=== PATIENT | male | born 1980 | race Caucasian/White ===

== ENCOUNTER 2017-10-31 14:40 | Emergency (ER) | payer OTHER ==
[2017-10-31 15:11] VITALS: RESP 18; O2SAT 98
--- NOTE | 2017-10-31 16:29 | RAD ---
Date of service: 10/31/2017 PROCEDURE: Radiographs of the Lumbar Spine. HISTORY: Back pain COMPARISON: No prior. FINDINGS: BONES: There is normal alignment of the lumbar vertebral bodies. There is normal lumbar lordosis. There is an age indeterminate compression deformity in the L1 vertebral body. No retropulsion. There is no spondylolysis or spondylolisthesis. Bone mineralization is normal. DISC SPACES: The disc heights are maintained. OTHER FINDINGS: There are no pathologic soft tissue calcifications. Both sacroiliac joints are normal. IMPRESSION: Age indeterminate compression deformity in the L1 vertebral body. No retropulsion. No spondylolysis or spondylolisthesis.
--- NOTE | 2017-10-31 16:59 | ED PDOC ---
Arrival/HPI - General Chief Complaint: Back Pain Time Seen by Provider: 10/31/17 14:52 Historian: Patient - History of Present Illness Narrative History of Present Illness (Text): 10/31/17 17:16 36yo male who present with complaint of left sided back pain x 3weeks. Notes pain is usually with flexion. States he took Motrin yesterday with temporary relieve. Denies trauma, focal weakness, urinary/fecal incontinence, abdominal pain, nausea, vomiting, urinary symptoms, saddle anesthesia, any other complaint. Past Medical History - Provider Review Nursing Documentation Reviewed: Yes - Infectious Disease Hx of Infectious Diseases: None - Cardiac Hx Cardiac Disorders: No - HEENT Hx HEENT Disorder: No - Integumentary Hx Dermatological Disorder: No - Musculoskeletal/Rheumatological Hx Musculoskeletal Disorders: No - Psychiatric Hx Psychophysiologic Disorder: No Hx Substance Use: No - Anesthesia Hx Anesthesia: No Family/Social History - Physician Review Nursing Documentation Reviewed: Yes Family/Social History: Unknown Family HX Smoking Status: Unknown If Ever Smoked Hx Alcohol Use: No Hx Substance Use: No Allergies/Home Meds Allergies/Adverse Reactions: Allergies No Known Allergies Allergy (Verified 10/31/17 15:07) Home Medications: Home Meds Medication Instructions Recorded Confirmed Ibuprofen [Motrin Ib] 0 mg PO PRN PRN 10/31/17 10/31/17 Review of Systems - Physician Review All systems were reviewed & negative as marked: Yes - Review of Systems Constitutional: Normal Eyes: Normal ENT: Normal Respiratory: Normal Cardiovascular: Normal Gastrointestinal: Normal Genitourinary Male: Normal Musculoskeletal: Back Pain Skin: Normal Neurological: Normal Endocrine: Normal Hemo/Lymphatic: Normal Psychiatric: Normal Physical Exam Vital Signs Reviewed: Yes Vital Signs Temp Pulse Resp BP Pulse Ox 10/31/17 15:04 99.2 F 85 18 107/75 98 10/31/17 14:40 99.2 F 85 18 107/75 98 Temperature: Afebrile Blood Pressure: Normal Pulse: Regular Respiratory Rate: Normal Appearance: Positive for: Well-Appearing, Non-Toxic, Comfortable Pain Distress: None Mental Status: Positive for: Alert and Oriented X 3 - Systems Exam Head: Present: Atraumatic, Normocephalic Pupils: Present: PERRL Extroacular Muscles: Present: EOMI Conjunctiva: Present: Normal Mouth: Present: Moist Mucous Membranes Neck: Present: Normal Range of Motion Respiratory/Chest: Present: Clear to Auscultation, Good Air Exchange. No: Respiratory Distress, Accessory Muscle Use Cardiovascular: Present: Regular Rate and Rhythm, Normal S1, S2. No: Murmurs Abdomen: No: Tenderness, Distention, Peritoneal Signs Back: Present: Paraspinal Tenderness (Left paraspinous tenderness). No: Midline Tenderness, Pain with Leg Raise Upper Extremity: Present: Normal Inspection. No: Cyanosis, Edema Lower Extremity: Present: Normal Inspection. No: Edema Neurological: Present: GCS=15, CN II-XII Intact, Speech Normal Skin: Present: Warm, Dry, Normal Color. No: Rashes Psychiatric: Present: Alert, Oriented x 3, Normal Insight, Normal Concentration Medical Decision Making ED Course and Treatment: 10/31/17 18:05 patient in ED for stated history. He was ambulatory and had no focal neurological deficit. His pain was controlled in ED with medication. UA was negative LS xray BONES: There is normal alignment of the lumbar vertebral bodies. There is normal lumbar lordosis. There is an age indeterminate compression deformity in the L1 vertebral body. No retropulsion. There is no spondylolysis or spondylolisthesis. Bone mineralization is normal. DISC SPACES: The disc heights are maintained. OTHER FINDINGS: There are no pathologic soft tissue calcifications. Both sacroiliac joints are normal. IMPRESSION: Age indeterminate compression deformity in the L1 vertebral body. No retropulsion. No spondylolysis or spondylolisthesis. The findings in the LS xray was DW the pt. He was not aware of the compression deformity. He was ambulatory and stable for discharge home. He was referred to Dr. Rogers for outpt evaluation and treatment. Rx of Naprosyn, flexeril and Lidocaine patch was given. He was advised to return to ED for any new or worsening symptoms. - Lab Interpretations Lab Results: Lab Results 10/31/17 16:50: Urine Color Light yellow, Urine Appearance Clear, Urine pH 6.5, Ur Specific Hammond 1.020, Urine Protein Negative, Urine Glucose (UA) Negative, Urine Ketones Negative, Urine Blood Negative, Urine Nitrate Negative, Urine Bilirubin Negative, Urine Urobilinogen 0.2, Ur Leukocyte Esterase Negative - RAD Interpretation Radiology Orders: 10/31/17 15:25 LS SPINE WITH OBL > 18 YRS OLD [RAD] Stat - Medication Orders Current Medication Orders: Discontinued Medications Cyclobenzaprine HCl (Flexeril) 10 mg PO STAT STA Stop: 10/31/17 15:26 Last Admin: 10/31/17 15:36 Dose: 10 mg Ketorolac Tromethamine (Toradol) 60 mg IM STAT STA Stop: 10/31/17 15:26 Last Admin: 10/31/17 15:36 Dose: 60 mg MAR Pain Assessment Document 10/31/17 15:36 SRE (Rec: 10/31/17 15:36 SRE [id number]) Pain Reassessment Is this a pain reassessment? Yes Sleep Is patient sleeping during reassessment? No Presence of Pain Presence of Pain Yes Pain Scale Used Pain Scale Used Numeric Location Left, Right or Bilateral Left Pain Location Body Site Back Description Description Intermittent IM Administration Charges Document 10/31/17 15:36 SRE (Rec: 10/31/17 15:36 SRE [id number]) Charges for Administration # of IM Administrations 1 Disposition/Present on Arrival - Present on Arrival Any Indicators Present on Arrival: No History of DVT/PE: No History of Uncontrolled Diabetes: No Urinary Catheter: No History of Decub. Ulcer: No History Surgical Site Infection Following: None - Disposition Have Diagnosis and Disposition been Completed?: Yes Diagnosis: Back pain, Compression fracture Disposition: HOME/ ROUTINE Disposition Time: 17:20 Patient Plan: Discharge Patient Problems: Current Active Problems Problem Status Onset Back pain Acute Compression fracture Acute Condition: STABLE Discharge Instructions (ExitCare): Vertebral Compression Fracture Additional Instructions: Follow up with orthopedist/IR Take medication as directed Return to ED for any new or worsening symptoms Prescriptions: Cyclobenzaprine [Cyclobenzaprine HCl] 10 mg PO TID #10 tab Lidocaine [Lidocaine Pain Relief] 1 each TP BID #10 adh..patch Naproxen [Naprosyn] 500 mg PO BID #20 tablet Referrals: Mark Rogers MD [Staff Provider] - Follow up with primary Forms: [employer] (Georgian), WORK NOTE
[2017-10-31 17:07] LABS: PH,URINE 6.5 (4.7-8.0); URINE BILIRUBIN NEGATIVE (NEGATIVE); URINE BLOOD NEGATIVE (NEGATIVE); URINE GLUCOSE (UA) NEGATIVE (NEGATIVE); URINE LEUKOCYTE ESTERASE NEGATIVE Leu/uL (NEGATIVE); URINE PROTEIN NEGATIVE mg/dL (<30 mg/dL); URINE UROBILINOGEN 0.2 E.U./dL (<1 E.U./dL)
[2017-10-31 17:08] LABS: URINE APPEARANCE CLEAR (CLEAR); URINE COLOR LIGHT YELLOW (YELLOW)
[2017-10-31 18:17] VITALS: BP 114/80; PULSE 80; TEMP 98.8
== END 2017-10-31 18:00 | disposition home or self-care (01) ==
LOC: ED 14:40
DX: M48.50XA Collapsed vertebra, not elsewhere classified, site unspecified, initial encounter for fracture (principal); M54.9 Dorsalgia, unspecified
CPT/HCPCS: 72110; 81003; 96372; 99282; J1885